=== PATIENT | male | born 1985 | race Caucasian/White ===

== ENCOUNTER → 2020-11-09 | Outpatient (CLI) | payer BC ==
--- NOTE | 2020-11-09 11:28 | RAD ---
EXAM DESCRIPTION: Chest,2 Views CLINICAL HISTORY: 35 years Male, HEMOPTYSIS COMPARISON: None Available TECHNIQUE: PA/lateral FINDINGS: There is no cardiac or pulmonary abnormality. The lungs are clear. There is no effusion. IMPRESSION: 1. Normal two-view chest. Electronically signed by: Nnamdi Joshi MD 11/09/2020 11:26 AM [facility]
== END ==
LOC: RAD 10:25
PROVIDERS: ATTEND Physician Assistant
DX: R04.2 Hemoptysis (principal)